=== PATIENT | female | born 1980 | race Two or more races ===

== ENCOUNTER 2024-10-30 11:56 | Emergency (ER) | payer OTHER ==
[~2024-10-30] VITALS: Ht 175.3 cm; Wt 78.5 kg
[2024-10-30] MEDS ORDERED: TAPAZOLE5 MG (12:28)
[2024-10-30] MEDS ORDERED: JENTADUETO XR1 EAC1 (12:28)
[2024-10-30] MEDS ORDERED: GLIPIZIDE XL10 MG (12:28)
[2024-10-30] MEDS ORDERED: WELLBUTRIN SR100 MG (12:29)
[2024-10-30] MEDS ORDERED: RESTORIL30 M1 (12:29)
[2024-10-30] MEDS ORDERED: ONDANSETRON 4 MG TAB.RAPDIS PO ONE (15:15)
[2024-10-30] MEDS ORDERED: ENALAPRILAT DIHYDRATE 1.25 MG/ML VIAL IV ONE (15:15)
[2024-10-30 15:37] LABS: BASO % 0.8 % (0.1-1.2); EOS # 0.02 (0.04-0.54); EOS % 0.2 % (0.7-7.0); LYMPH # 2.51 (1.18-3.74); LYMPH % 23.1 % (19.3-53.1); MEAN PLATELET VOLUME 9.80 fl (9.4-12.4); MONO # 0.49 (0.24-0.82); MONO % 4.5 % (4.7-12.5); NEUT # 7.72 (1.56-6.13); NEUT % 71.1 % (34.0-71.1); RED CELL DISTRIBUTION WIDTH 21.5 % (11.6-14.4)
[2024-10-30 15:59] LABS: BUN CREA RATIO 11.0 (7.0-25.0); CREATININE SERUM 0.88 mg/dL (0.55-1.02); GFR 70.47; OSMOLALITY SERUM 283.0 MOSM/KG (275-295)
[2024-10-30 16:00] LABS: GLUCOSE FASTING 256.0 mg/dL (65-100)
[2024-10-30 16:37] LABS: URINE APPEARANCE Clear; URINE BILIRRUBIN Negative (NEGATIVE); URINE BLOOD Negative; URINE COLOR Yellow; URINE KETONE Negative (NEGATIVE); URINE LEUKOCYTE Negative; URINE NITRATE Negative; URINE PROTEIN Negative (NEGATIVE); URINE UROBILINOGEN 0.2 E.U./dl
[2024-10-30 16:43] LABS: URINE BACTERIA 545.6 uL (0.0-1933); URINE EPITHELIAL CELLS 8.2 uL (0.0-38.8); URINE WBC 8.1 uL (0.0-23.2)
[2024-10-30 17:16] LABS: URINE CAST 0.00 uL (0.0-1.40); URINE GLUCOSE 500 MG/DL (NEGATIVE); URINE RBC 1.1 uL (0.0-20.8)
== END 2024-10-30 18:36 | disposition home or self-care (01) ==
LOC: ER 11:56
PROVIDERS: General Practice
DX: D64.9 Anemia, unspecified (principal); R00.0 Tachycardia, unspecified; E11.9 Type 2 diabetes mellitus without complications; Z79.84 Long term (current) use of oral hypoglycemic drugs; E05.90 Thyrotoxicosis, unspecified without thyrotoxic crisis or storm

== ENCOUNTER 2024-12-07 13:30 | Outpatient (CLI) | payer OTHER ==
[~2024-12-07 13:30] MED LIST: GLIPIZIDE XL10 MG; JENTADUETO XR1 EAC1; RESTORIL30 M1; TAPAZOLE5 MG; WELLBUTRIN SR100 MG
== END 2024-12-07 13:40 | disposition home or self-care (01) ==
LOC: PPH VACUNA 13:30
PROVIDERS: ATTEND Emergency Medicine Pediatric Emergency Medicine
DX: Z23 Encounter for immunization (principal)